=== PATIENT | female | born 1950 | race Caucasian/White ===

== ENCOUNTER 2017-08-14 06:52 | Outpatient (CLI) | payer OTHER ==
[~2017-08-14 06:52] MED LIST: CLARINEX-D 11 BOTTLE PO; CRESTOR10 MG; HYZAAR 50/12.51 TAB; OSEL75CA PO; TUSNEL LIQUID178 ML PO; TUSSI PRES-B L120 M1 PO; ZITHROMAX TRI-500 MG PO
== END 2017-08-14 07:08 | disposition home or self-care (01) ==
LOC: LAB 06:52
DX: E03.8 Other specified hypothyroidism (principal); E78.5 Hyperlipidemia, unspecified; I11.9 Hypertensive heart disease without heart failure

== ENCOUNTER 2017-08-14 07:58 | Outpatient (CLI) | payer OTHER | END 2017-08-14 08:15 | disposition home or self-care (01) | LOC: MAMO-SONO 07:58 | DX: N60.11 Diffuse cystic mastopathy of right breast (principal); N60.12 Diffuse cystic mastopathy of left breast; Z12.31 Encounter for screening mammogram for malignant neoplasm of breast ==

== ENCOUNTER 2017-09-17 07:37 | Emergency (ER) | payer OTHER ==
[~2017-09-17] VITALS: Ht 154.9 cm; Wt 87.1 kg
[2017-09-17] MEDS ORDERED: OSEL75CA PO (11:14)
[2017-09-17] MEDS ORDERED: PROMETHAZINE W118 ML PO (11:16)
== END 2017-09-17 11:26 | disposition home or self-care (01) ==
LOC: ER 07:37
DX: J11.1 Influenza due to unidentified influenza virus with other respiratory manifestations (principal); B34.9 Viral infection, unspecified

== ENCOUNTER → 2018-06-14 10:16 | Outpatient (CLI) | payer OTHER ==
[~2018-06-14 10:16] MED LIST changes: +PROMETHAZINE W118 ML PO
== END | disposition home or self-care (01) ==
LOC: LAB 10:16
DX: I11.9 Hypertensive heart disease without heart failure (principal); E78.49 Other hyperlipidemia; E03.8 Other specified hypothyroidism

== ENCOUNTER 2018-06-19 12:58 | Outpatient (CLI) | payer OTHER | END 2018-06-19 13:04 | disposition home or self-care (01) | LOC: RAD 12:58 | DX: J40 Bronchitis, not specified as acute or chronic (principal) ==

== ENCOUNTER 2018-08-31 13:34 | Emergency (ER) | payer OTHER ==
[~2018-08-31] VITALS: Ht 154.9 cm; Wt 90.3 kg
== END 2018-09-01 00:02 | disposition home or self-care (01) ==
LOC: ER 13:34
DX: K52.9 Noninfective gastroenteritis and colitis, unspecified (principal)

== ENCOUNTER → 2018-10-02 12:14 | Outpatient (CLI) | payer OTHER | END | disposition home or self-care (01) | LOC: LAB 12:14 | DX: J10.1 Influenza due to other identified influenza virus with other respiratory manifestations (principal); A37.01 Whooping cough due to Bordetella pertussis with pneumonia; J11.1 Influenza due to unidentified influenza virus with other respiratory manifestations ==

== ENCOUNTER 2019-03-13 08:13 | Outpatient (CLI) | payer OTHER | END 2019-03-13 08:27 | disposition home or self-care (01) | LOC: LAB 08:13 | DX: E78.2 Mixed hyperlipidemia (principal); J40 Bronchitis, not specified as acute or chronic; M54.5 Low back pain; E78.5 Hyperlipidemia, unspecified; I11.9 Hypertensive heart disease without heart failure ==

== ENCOUNTER 2019-03-13 09:10 | Outpatient (CLI) | payer OTHER | END 2019-03-13 09:36 | disposition home or self-care (01) | LOC: NUCLEAR 09:10 | DX: I25.10 Atherosclerotic heart disease of native coronary artery without angina pectoris (principal) | CPT/HCPCS: 78452; 93017; A9500 ==

== ENCOUNTER 2019-03-18 11:13 | Outpatient (CLI) | payer OTHER | END 2019-03-18 11:20 | disposition home or self-care (01) | LOC: LAB 11:13 | DX: E78.2 Mixed hyperlipidemia (principal); J40 Bronchitis, not specified as acute or chronic; M54.5 Low back pain; I11.9 Hypertensive heart disease without heart failure ==

== ENCOUNTER 2019-04-10 13:18 | Outpatient (CLI) | payer OTHER | END 2019-04-10 13:22 | disposition home or self-care (01) | LOC: SONOGRAMA 13:18 | DX: N83.291 Other ovarian cyst, right side (principal); N83.292 Other ovarian cyst, left side ==

== ENCOUNTER 2019-07-17 11:43 | Inpatient (IN) | payer OTHER ==
[~2019-07-17] VITALS: Ht 154.9 cm; Wt 94.3 kg
[~2019-07-17 11:43] MED LIST changes: -CRESTOR10 MG; +CRESTOR10 MG PO
[2019-07-18] MEDS ORDERED: BREO ELLIPTA 21 EACH IH (12:42)
[2019-07-18] MEDS ORDERED: ACID REDUCER150 MG PO (12:42)
[2019-07-18] MEDS ORDERED: SINGULAIR 10MG10 MG PO (12:42)
== END 2019-07-27 11:46 | DRG 742 ==
LOC: O/R 07-25 05:20 → OB/GYN 07-25 05:20 → SURG 07-25 07:00 → OB/GYN 07-25 13:17
PROVIDERS: ADMIT Student in an Organized Health Care Education/Training Program
PROC: 0USG0ZZ Reposition Vagina, Open Approach (ICD-10-PCS; 2019-07-25)
PROC: 0JQC0ZZ Repair Pelvic Region Subcutaneous Tissue and Fascia, Open Approach (ICD-10-PCS; 2019-07-25)
PROC: 0TSC0ZZ Reposition Bladder Neck, Open Approach (ICD-10-PCS; 2019-07-25)
PROC: 0TJB8ZZ Inspection of Bladder, Via Natural or Artificial Opening Endoscopic (ICD-10-PCS; 2019-07-25)
PROC: 0UT97ZZ Resection of Uterus, Via Natural or Artificial Opening (ICD-10-PCS; principal; 2019-07-25 07:00)
PROC: 0JQC0ZZ Repair Pelvic Region Subcutaneous Tissue and Fascia, Open Approach (ICD-10-PCS; 2019-07-25 07:00)
PROC: 0UW Female Reproductive System, Revision (ICD-10-PCS; 2019-07-26)
DX: D25.1 Intramural leiomyoma of uterus (principal); N13.8 Other obstructive and reflux uropathy; D25.0 Submucous leiomyoma of uterus; D25.2 Subserosal leiomyoma of uterus; N72 Inflammatory disease of cervix uteri; N84.0 Polyp of corpus uteri; N81.3 Complete uterovaginal prolapse; N39.3 Stress incontinence (female) (male)

== ENCOUNTER 2019-09-12 10:04 | Outpatient (CLI) | payer OTHER | END 2019-09-12 10:26 | disposition home or self-care (01) | LOC: LAB 10:04 | DX: D64.89 Other specified anemias (principal); I10 Essential (primary) hypertension; E78.00 Pure hypercholesterolemia, unspecified; N39.0 Urinary tract infection, site not specified; E03.8 Other specified hypothyroidism; E11.69 Type 2 diabetes mellitus with other specified complication; E11.29 Type 2 diabetes mellitus with other diabetic kidney complication; Z12.31 Encounter for screening mammogram for malignant neoplasm of breast; R19.5 Other fecal abnormalities; E55.9 Vitamin D deficiency, unspecified ==

== ENCOUNTER → 2019-09-12 | Outpatient (CLI) | payer OTHER ==
[~2019-09-12] MED LIST changes: +ACID REDUCER150 MG PO; +BREO ELLIPTA 21 EACH IH; +SINGULAIR 10MG10 MG PO
== END | disposition home or self-care (01) ==
LOC: MAMO-SONO 12:03
DX: Z12.31 Encounter for screening mammogram for malignant neoplasm of breast (principal); Z87.898 Personal history of other specified conditions; N63.10 Unspecified lump in the right breast, unspecified quadrant; N63.20 Unspecified lump in the left breast, unspecified quadrant

== ENCOUNTER 2019-09-23 11:18 | Outpatient (CLI) | payer OTHER | END 2019-09-23 11:41 | disposition home or self-care (01) | LOC: LAB 11:18 | DX: D64.89 Other specified anemias (principal); I10 Essential (primary) hypertension; E78.00 Pure hypercholesterolemia, unspecified; N39.0 Urinary tract infection, site not specified; E03.8 Other specified hypothyroidism; E11.69 Type 2 diabetes mellitus with other specified complication; E11.29 Type 2 diabetes mellitus with other diabetic kidney complication; Z12.31 Encounter for screening mammogram for malignant neoplasm of breast; R19.5 Other fecal abnormalities; E55.9 Vitamin D deficiency, unspecified ==

== ENCOUNTER 2019-09-25 09:35 | Outpatient (CLI) | payer OTHER | END 2019-09-25 10:52 | disposition home or self-care (01) | LOC: NUCLEAR 09:35 | DX: M81.0 Age-related osteoporosis without current pathological fracture (principal) ==

== ENCOUNTER 2020-12-07 10:42 | Outpatient (CLI) | payer OTHER | END 2020-12-07 10:47 | disposition home or self-care (01) | LOC: RAD 10:42 | PROVIDERS: ATTEND Internal Medicine | DX: S99.921A Unspecified injury of right foot, initial encounter (principal) ==

== ENCOUNTER 2021-09-01 10:28 | Outpatient (CLI) | payer OTHER | END 2021-09-01 10:29 | disposition home or self-care (01) | LOC: LAB 10:28 | PROVIDERS: ATTEND Internal Medicine | DX: D64.9 Anemia, unspecified (principal); E11.9 Type 2 diabetes mellitus without complications; E78.00 Pure hypercholesterolemia, unspecified; N39.0 Urinary tract infection, site not specified; E03.8 Other specified hypothyroidism; Z12.11 Encounter for screening for malignant neoplasm of colon; R19.5 Other fecal abnormalities; E55.9 Vitamin D deficiency, unspecified ==

== ENCOUNTER → 2021-09-05 13:28 | Outpatient (CLI) | payer OTHER | END | disposition home or self-care (01) | LOC: LAB 13:28 | PROVIDERS: ATTEND Internal Medicine | DX: D64.9 Anemia, unspecified (principal); E11.9 Type 2 diabetes mellitus without complications; E78.00 Pure hypercholesterolemia, unspecified; N39.0 Urinary tract infection, site not specified; E03.8 Other specified hypothyroidism; Z12.11 Encounter for screening for malignant neoplasm of colon; R19.5 Other fecal abnormalities; E55.9 Vitamin D deficiency, unspecified ==

== ENCOUNTER 2021-09-19 12:12 | Outpatient (CLI) | payer OTHER | END 2021-09-19 12:18 | disposition home or self-care (01) | LOC: MAMO-SONO 12:12 | PROVIDERS: ATTEND Internal Medicine | DX: N63.0 Unspecified lump in unspecified breast (principal); Z12.31 Encounter for screening mammogram for malignant neoplasm of breast ==

== ENCOUNTER 2022-01-26 12:16 | Outpatient (CLI) | payer OTHER | END 2022-01-26 12:23 | disposition home or self-care (01) | LOC: RAD 12:16 | PROVIDERS: ATTEND Orthopaedic Surgery | DX: M25.561 Pain in right knee (principal); M25.562 Pain in left knee ==

== ENCOUNTER 2023-05-15 10:43 | Outpatient (CLI) | payer OTHER | END 2023-05-15 10:46 | disposition home or self-care (01) | LOC: RAD 10:43 | PROVIDERS: ATTEND Internal Medicine | DX: J44.1 Chronic obstructive pulmonary disease with (acute) exacerbation (principal) ==

== ENCOUNTER 2023-06-25 10:13 | Outpatient (CLI) | payer OTHER | END 2023-06-25 10:14 | disposition home or self-care (01) | LOC: NUCLEAR 10:13 | PROVIDERS: ATTEND Internal Medicine | DX: I87.2 Venous insufficiency (chronic) (peripheral) (principal) ==

== ENCOUNTER 2023-06-25 11:16 | Outpatient (CLI) | payer OTHER | END 2023-06-25 11:23 | disposition home or self-care (01) | LOC: RAD 11:16 | PROVIDERS: ATTEND Internal Medicine | DX: M77.31 Calcaneal spur, right foot (principal); M85.80 Other specified disorders of bone density and structure, unspecified site; M54.17 Radiculopathy, lumbosacral region; I87.2 Venous insufficiency (chronic) (peripheral); I65.1 Occlusion and stenosis of basilar artery; I70.223 Atherosclerosis of native arteries of extremities with rest pain, bilateral legs; I48.0 Paroxysmal atrial fibrillation; I70.203 Unspecified atherosclerosis of native arteries of extremities, bilateral legs; I25.2 Old myocardial infarction; E03.8 Other specified hypothyroidism; E11.69 Type 2 diabetes mellitus with other specified complication; E78.00 Pure hypercholesterolemia, unspecified; I11.9 Hypertensive heart disease without heart failure ==

== ENCOUNTER 2023-08-20 10:26 | Outpatient (CLI) | payer OTHER | END 2023-08-20 10:35 | disposition home or self-care (01) | LOC: TOM 10:26 | DX: J44.9 Chronic obstructive pulmonary disease, unspecified (principal) ==

== ENCOUNTER 2024-06-17 13:41 | Outpatient (CLI) | payer OTHER | END 2024-06-17 13:54 | disposition home or self-care (01) | LOC: TOM 13:41 | PROVIDERS: ATTEND Internal Medicine | DX: M54.2 Cervicalgia (principal); J44.1 Chronic obstructive pulmonary disease with (acute) exacerbation ==

== ENCOUNTER 2024-07-31 12:22 | Outpatient (CLI) | payer OTHER | END 2024-07-31 12:26 | disposition home or self-care (01) | LOC: LAB 12:22 | PROVIDERS: ATTEND Internal Medicine | DX: N39.0 Urinary tract infection, site not specified (principal) ==

== ENCOUNTER 2024-12-15 07:37 | Outpatient (CLI) | payer OTHER | END 2024-12-15 07:39 | disposition home or self-care (01) | LOC: SONOGRAMA 07:37 | DX: E04.2 Nontoxic multinodular goiter (principal); R10.9 Unspecified abdominal pain; K76.0 Fatty (change of) liver, not elsewhere classified ==

== ENCOUNTER 2024-12-15 08:50 | Outpatient (CLI) | payer OTHER ==
[2024-12-15 10:39] LABS: ALBUMIN 3.3 gm/dL (3.4-5.0); BILIRUBIN TOTAL 0.75 mg/dL (0.3-1.2); BILIRUBIN,CONJUGATED 0.19 mg/dL (0.0-0.2); BILIRUBIN,UNCONJUGATED 0.56 mg/dL (0.0-0.6); CALCIUM 9.2 mg/dL (8.5-10.1); CREATININE SERUM 0.73 mg/dL (0.55-1.02); GFR 77.93; POTASSIUM 4.2 mEq/L (3.5-5.1)
== END 2024-12-15 08:51 | disposition home or self-care (01) ==
LOC: LAB 08:50
DX: R10.9 Unspecified abdominal pain (principal); K76.0 Fatty (change of) liver, not elsewhere classified

== ENCOUNTER 2025-04-30 10:04 | Outpatient (CLI) | payer OTHER | END 2025-04-30 10:13 | disposition home or self-care (01) | LOC: MAMO-SONO 10:04 | PROVIDERS: ATTEND Internal Medicine | DX: N64.4 Mastodynia (principal); R92.8 Other abnormal and inconclusive findings on diagnostic imaging of breast; Z12.31 Encounter for screening mammogram for malignant neoplasm of breast ==